=== PATIENT | male | born 1995 | race Two or more races ===

== ENCOUNTER 2024-05-29 16:42 | Emergency (ER) | payer SELFPAY ==
[2024-05-29 16:44] VITALS: BP 120/88; PULSE 69; RESP 18; TEMP 36.7; O2SAT 99; BMI 25.0
--- NOTE | 2024-05-29 17:45 | XR_ITS ---
PROCEDURE INFORMATION: Exam: XR Right Shoulder Exam date and time: 05/29/2024 6:21 PM Age: 28 years old Clinical indication: Pain; Shoulder; Right; Additional info: Falll, proximal humerus and elbow pain TECHNIQUE: Imaging protocol: Radiologic exam of the right shoulder. Views: 2 or more views. COMPARISON: CR XR ELBOW RT MIN 3V 05/29/2024 6:20 PM FINDINGS: Bones/joints: No evidence of acute fracture or dislocation. Soft tissues: Unremarkable. IMPRESSION: No evidence of acute osseous abnormality in the right shoulder.
--- NOTE | 2024-05-29 17:45 | XR_ITS ---
PROCEDURE INFORMATION: Exam: XR Right Elbow Exam date and time: 05/29/2024 6:20 PM Age: 28 years old Clinical indication: Injury or trauma; Fall; Blunt trauma (contusions or hematomas); Elbow; Right; Additional info: Falll, proximal humerus and elbow pain TECHNIQUE: Imaging protocol: Radiologic exam of the right elbow. Views: 3 or more views. COMPARISON: CR XR FOREARM RT 2V 05/29/2024 6:19 PM FINDINGS: Bones/joints: No evidence of acute fracture or malalignment. No elbow joint effusion. Soft tissues: Unremarkable. IMPRESSION: No evidence of acute osseous abnormality in the right elbow.
--- NOTE | 2024-05-29 17:45 | XR_ITS ---
PROCEDURE INFORMATION: Exam: XR Left Ribs with PA Chest Exam date and time: 05/29/2024 6:29 PM Age: 28 years old Clinical indication: Injury or trauma; Fall; Rib area, left side; Blunt trauma; Additional info: Fall, right rib and scap pain posteriorly TECHNIQUE: Imaging protocol: Radiologic exam of the left ribs with PA chest. Views: 3 views COMPARISON: No relevant prior studies available. FINDINGS: Lungs: No evidence of airspace infiltrate. No pulmonary edema. Pleural spaces: No visible pleural effusion. No pneumothorax. Heart/Mediastinum: Cardiomediastinal silouhette is within normal limits. Bones/joints: No evidence of acute osseous abnormality. IMPRESSION: No acute findings. No evidence of acute displaced rib fracture.
--- NOTE | 2024-05-29 17:45 | XR_ITS ---
PROCEDURE INFORMATION: Exam: XR Right Scapula Exam date and time: 05/29/2024 6:25 PM Age: 28 years old Clinical indication: Other: Scapula pain; Additional info: Fall 12 feet, right rib and scap pain TECHNIQUE: Imaging protocol: Radiologic exam of the right scapula. Complete exam. COMPARISON: CR XR HUMERUS RT 05/29/2024 6:23 PM FINDINGS: Bones/joints: No evidence of acute fracture or malalignment. Soft tissues: Unremarkable. IMPRESSION: No evidence of acute osseous abnormality in the right scapula.
--- NOTE | 2024-05-29 17:45 | XR_ITS ---
PROCEDURE INFORMATION: Exam: XR Right Hand Exam date and time: 05/29/2024 6:18 PM Age: 28 years old Clinical indication: Injury or trauma; Fall; Blunt trauma (contusions or hematomas); Hand; Right; Additional info: Falll, mid palm pain TECHNIQUE: Imaging protocol: Radiologic exam of the right hand. Views: 3 or more views. COMPARISON: CR XR HAND RT MIN 3V 05/29/2024 6:18 PM FINDINGS: Bones/joints: No evidence of acute fracture or malalignment. Soft tissues: Unremarkable. IMPRESSION: No evidence of acute osseous abnormality in the right hand.
--- NOTE | 2024-05-29 17:45 | XR_ITS ---
PROCEDURE INFORMATION: Exam: XR Right Forearm Exam date and time: 05/29/2024 6:19 PM Age: 28 years old Clinical indication: Injury or trauma; Fall; Blunt trauma (contusions or hematomas); Wrist; Right; Additional info: Falll, proximal humerus and elbow pain TECHNIQUE: Imaging protocol: Radiologic exam of the right forearm. Views: 2 views. COMPARISON: CR XR HAND RT MIN 3V 05/29/2024 6:18 PM FINDINGS: Bones/joints: No evidence of acute fracture or malalignment. Soft tissues: Unremarkable. IMPRESSION: No evidence of acute osseous abnormality in the right forearm.
--- NOTE | 2024-05-29 17:45 | XR_ITS ---
PROCEDURE INFORMATION: Exam: XR Right Humerus Exam date and time: 05/29/2024 6:23 PM Age: 28 years old Clinical indication: Pain; Upper arm; Right; Additional info: Falll, proximal humerus and elbow pain TECHNIQUE: Imaging protocol: Radiologic exam of the right humerus. Views: 2 or more views. COMPARISON: CR XR SHOULDER RT MIN 2V 05/29/2024 6:21 PM FINDINGS: Bones/joints: No evidence of acute fracture or malalignment. Soft tissues: Unremarkable. IMPRESSION: No evidence of acute osseous abnormality in the right humerus.
--- NOTE | 2024-05-29 17:45 | XR_ITS ---
PROCEDURE INFORMATION: Exam: XR Right Wrist Exam date and time: 05/29/2024 6:16 PM Age: 28 years old Clinical indication: Injury or trauma; Fall; Blunt trauma (contusions or hematomas); Wrist; Right; Additional info: Fall, right wrist pain TECHNIQUE: Imaging protocol: Radiologic exam of the right wrist. Views: 3 or more views. COMPARISON: CR XR WRIST RT MIN 3V 05/29/2024 6:16 PM FINDINGS: Bones/joints: No evidence of acute fracture or malalignment. Carpal arcs are maintained. Soft tissues: Unremarkable. IMPRESSION: No evidence of acute osseous abnormality in the right wrist.
[2024-05-29 17:49] VITALS: BP 141/81; PULSE 75
[2024-05-29] MEDS: IBUPROFEN 600 MG TABLET PO (17:55)
[2024-05-29] MEDS: ACETAMINOPHEN 500MG TAB 1000 MG PO (17:55)
--- NOTE | 2024-05-29 18:17 | ED_ITS ---
Discharge Plan Disposition Patient Disposition: Home, Self-Care Referrals Follow up/Referrals: Provider,Referral, MD [Primary Care Provider] - See instructions Activity Restrictions/Add. Instructions Additional Instructions/Restrictions: Visita a ross doctor de jeanna sobre esta haseeb en el departamento de emergencias. Si tiene otro lastima, o otras sintomas preocupantes, regresa a ross doctor o departamento de emergencias para evaluacion. Tylenol 1000 mg y motrin 400 mg ca da seis horas para dolor con agua y comida. Clinical Impressions Clinical Impression: Fall, Rib pain on right side, Arm pain, right Print Language Print Language: Mongolian Discharge ED Provider: Nghia Brennan General Adult HPI General Chief complaint: Fall Stated complaint: AO 05/29/24 Right arm,right shoulder injury Time Seen by Provider: 05/29/24 17:21 Mode of Arrival: Ambulatory Source of Information: Patient and Relative Limitations: No Limitations Description of Symptoms (Recalled from ER Triage Doc. by RN): c/o pain in right shoulder and right back after falling from a bottom rail in a barn 5-6 ft onto a wagon. Denies any LOC. History of Present Illness HPI narrative: Please note that above description of symptoms, in this electronic medical record under categorization of recalled from ER triage doctor by RN are reflective of an initial nursing assessment, however, is not reflective of my full history and physical exam that was personally taken and clarified. Consequentially, this preceding description of symptoms, which may include the patient's categorized chief complaint in the EMR, do not reflect my personal clinical impression, and the ultimate description of history of present illness and patient stated complaints should be deferred to this section of the note. Unless stated otherwise or congruent with this section of the note, additional signs, symptoms, or incongruence should be interpreted as inaccurate with my clinical impression. [facility] Disclaimer: The information contained in this section may have been updated after the pa hector was seen, as this information can be updated by other users. Social History Smoking Status: Never smoker alcohol intake: never current occupational status: employed Travel in the last 8 weeks: None ROS Obtained: Yes All systems reviewed & no additional complaints except as documented Physical Exam General General appearance: alert Head Head exam: atraumatic and normocephalic Eye Eye exam: Present normal appearance, PERRL and EOMI Neck Neck exam: Present normal inspection, full ROM and trachea midline Respiratory Respiratory exam: Absent respiratory distress, wheezes, stridor, accessory muscle use or prolonged expiratory phase Cardiovascular Cardiovascular exam: Present other (Pulses equal symmetric in upper and lower extremities) Abdominal Exam Abdominal exam: Present soft; Absent distention, tenderness or pulsatile mass Extremities Exam Extremities exam: Present other (Per MDM); Absent edema Neurological Exam Neurological exam: Present alert, oriented X3 and CN II-XII intact; Absent motor sensory deficit Skin Skin exam: Present warm and dry; Absent diaphoresis or erythema Medical Decision Making Medical Records Medical records reviewed: Yes I reviewed the patient's medical records. Screening: Per USPSTF and CDC recommendations, given the prevalence of disease in our region, it is our hospital?s policy to screen for HIV and viral Hepatitis for all patients aged 18 and over and those with ongoing risk factors. Cristopher Inquiry Pt receiving controlled substance: No Cristopher was queried for this patient: No Vital Signs: 05/29/24 16:44 05/29/24 17:49 05/29/24 19:04 Temperature 98.1 F Temperature Source Oral Pulse Rate 75 70 Pulse Rate [Left Radial] 69 Respiratory Rate 18 20 Blood Pressure 141/81 H 119/92 H Blood Pressure [Left Arm] 120/88 Blood Pressure Mean [Left Arm] 98 Blood Pressure Source [Left Arm] Automatic Cuff Blood Pressure Position [Left Arm] Sitting 02 Sat by Pulse Oximetry 99 100 Oxygen Delivery Method Room Air Room Air Orders (Tests/Meds): ED MEDICATIONS Generic Name Dose Route Start Last Admin Trade Name Freq PRN Reason Stop Dose Admin Acetaminophen 1,000 mg 05/29/24 17:45 05/29/24 17:55 Acetaminophen 500mg Tab PO 05/29/24 17:46 1,000 mg ONCE ONE Administration Ibuprofen 600 mg 05/29/24 17:45 05/29/24 17:55 Ibuprofen 600 Mg Tablet PO 05/29/24 17:46 600 mg ONCE ONE Administration ORDERS Category Date Time Status Elbow XR right minimum 3 views [XR elbow RT min 3V] Exams 05/29/24 17:45 Completed Stat Forearm XR right 2 views [XR forearm RT 2V] Stat Exams 05/29/24 17:45 Completed Hand XR right minimum 3 views [XR hand RT min 3V] Stat Exams 05/29/24 17:45 Completed Humerus XR right [XR humerus RT] Stat Exams 05/29/24 17:45 Completed Scapula XR right [XR scapula RT] Stat Exams 05/29/24 17:45 Completed Shoulder XR right miminum 2 views [XR shoulder RT min Exams 05/29/24 17:45 Completed 2V] Stat Wrist XR right minimum 3 views [XR wrist RT min 3V] Exams 05/29/24 17:45 Completed Stat XR ribs LT min 3V w CXR1V Stat Exams 05/29/24 17:45 Completed Medical Decision Narrative: 28-year-old male Mongolian-speaking otherwise healthy presenting with fall. Patient states that he fell 12 to 15 feet through the the roof of a barn that collapsed. Landed on his legs on the ground and then fell to his right side onto his back. Did not hit his head, did not lose consciousness. States he was able to get up and ambulate afterward. Having pain in his scapula, ribs posteriorly, right upper extremity at humerus, elbow, wrist, hand. Has not taken anything for the pain. Is mild, does not radiate, no other associated symptoms. No neurovascular deficits. History obtained with patient. On arrival, very well-appearing. He does have superficial abrasions overlying his ribs, posterior aspect of his right humerus, no outward signs of injury. Bilateral breath sounds. Patient has no midline neck or back tenderness. Neurologically intact. Full range of motion with right upper extremity. Tenderness in antecubital fossa and tenderness with flexion of arm. Patient also having tenderness with supination of wrist on the right upper extremity. Differential includes fracture, sprain, strain, dislocation, among others. Patient was given Tylenol and Motrin initially. Images were independently interpreted and demonstrate no acute bony abnormality of the right upper ex tremity, ribs, scapula. No evidence of underlying pneumothorax. Because patient at baseline without signs or symptoms of clinical decompensation, deemed appropriate for discharge. Results were relayed to patient who voiced understanding and were agreeable to outpatient management and follow up. I discussed my clinical impression with patient and answered all questions. At this time, the evidence for any other entities in the differential is insufficient to warrant any further testing or ED observation. This was explained as well. Advisory was given that persistent or worsening symptoms re quire further evaluation. I confirmed the understanding of this discussion. Manufacturing Industrial Engineer disclaimer Much of this encounter note is an electronic development and housing director spoken language to printed text. Electronic development and housing director of the spoken language may permit errors. Although I have reviewed the note, some errors may still exist. Critical Care Critical Care Time Critical Care Time: No
[2024-05-29 19:04] VITALS: BP 119/92; PULSE 70; RESP 20; O2SAT 100
--- NOTE | 2024-05-29 19:24 | PC.NURSE ---
ice pack given to pt at this time
[2024-05-29 19:48] VITALS: BP 128/72; PULSE 70; RESP 28; TEMP 36.6; O2SAT 100
== END 2024-05-29 19:59 | disposition home or self-care (01) ==
PROVIDERS: Emergency Provider Emergency Medicine
DX: M25.511 Pain in right shoulder (principal); M54.9 Dorsalgia, unspecified; M79.601 Pain in right arm; R07.81 Pleurodynia; W17.89XA Other fall from one level to another, initial encounter; Y93.89 Activity, other specified; Y92.71 Barn as the place of occurrence of the external cause
CPT/HCPCS: 71101; 73010; 73030; 73060; 73080; 73090; 73110; 73130; 99283